=== PATIENT | female | born 1950 | race Caucasian/White ===

== ENCOUNTER 2018-03-03 10:19 | Outpatient (CLI) | payer MEDICARE, OTHER, SELFPAY ==
--- NOTE | 2018-03-03 10:23 | DI.RAD_ITS ---
SYMPTOM/DIAGNOSIS: RT KNEE PAIN RIGHT KNEE: The bony structures are normally mineralized. There are some small cystic changes involving the posterior right paramedian portion of the tibia at the region of the base of the lateral tibial eminence. There is some slight irregularity and spurring of the lateral tibial eminence as well. 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 There is a possible tiny joint effusion. SUMMARY: Mild degenerative changes are demonstrated. The possibility of an old cruciate ligament injury could not be excluded. If there is further clinical question, then an MRI could be performed.
== END 2018-03-03 10:39 ==
PROVIDERS: PCP Internal Medicine; Referring Provider Internal Medicine; Visit Provider Orthopaedic Surgery
DX: M25.561 Pain in right knee (principal); M17.11 Unilateral primary osteoarthritis, right knee; M23.91 Unspecified internal derangement of right knee; Z96.652 Presence of left artificial knee joint
CPT/HCPCS: 20610; 99213; 73560; J1040

== ENCOUNTER → 2018-04-07 11:27 | Outpatient (BNVA) | payer MEDICARE, OTHER, SELFPAY | PROVIDERS: PCP Internal Medicine; Referring Provider Internal Medicine; Visit Provider Orthopaedic Surgery | DX: M25.569 Pain in unspecified knee (principal); Z96.652 Presence of left artificial knee joint | CPT/HCPCS: 99213 ==